=== PATIENT | male | born 1935 | race Asian ===

== ENCOUNTER 2017-03-15 16:15 | Emergency (ER) | payer SELFPAY ==
[~2017-03-15] VITALS: Ht 172.7 cm; Wt 73.0 kg
[~2017-03-15 16:15] MED LIST: AMLO-114 PO; ATOR-24 PO
[2017-03-15 16:17] VITALS: TEMP 36.5; Ht 172.7 cm; Wt 73.0 kg
[2017-03-15] MEDS ORDERED: ONDANSETRON 4MG OD TAB PO ONE (16:45)
--- NOTE | 2017-03-15 17:10 | DIAGNOSTIC IMAGING REPORT ---
HEAD WITHOUT CONTRAST (CT) CT DOSE: 1088.29 mGy.cm HISTORY: Trauma fall, head injury TECHNIQUE: Multiaxial CT images of the head were performed without the use of intravenous contrast. A dose lowering technique was utilized adhering to the principles of ALARA. Comparison: None. Findings: The paranasal sinuses and mastoid air cells are clear. The calvarium and skull base are intact. The ventricles and sulci are within normal limits. There is no mass, hematoma, midline shift, or acute infarct. Impression: No acute intracranial abnormality. The above report was generated using voice recognition software. It may contain grammatical, syntax or spelling errors. Electronically signed by: Lars Martinez M.D. 03/15/2017 5:09 PM Dictated Date/Time: 03/15/2017 5:05 PM
--- NOTE | 2017-03-15 17:22 | DIAGNOSTIC IMAGING REPORT ---
CT OF THE CERVICAL SPINE WITHOUT CONTRAST CLINICAL HISTORY: Neck pain following fall. COMPARISON STUDY: No previous studies for comparison. TECHNIQUE: Helical axial images of the cervical spine were obtained without IV contrast. Sagittal and coronal reconstructions were viewed. A dose lowering technique was utilized adhering to the principles of ALARA. FINDINGS: Alignment of the cervical spine is anatomic. Craniocervical junction is intact. There is no acute cervical spine fracture. No prevertebral edema is present. There is extensive anterior osteophytosis with mild to moderate multilevel disc space narrowing. There is moderate multilevel facet arthrosis. IMPRESSION: No acute cervical spine fracture or subluxation. Electronically signed by: Tre Meek M.D. 03/15/2017 5:21 PM Dictated Date/Time: 03/15/2017 5:18 PM
--- NOTE | 2017-03-15 18:26 | EMERGENCY ROOM VISIT NOTE ---
History First contact with patient: 16:25 Chief Complaint: HEAD INJURY (MINOR) Stated Complaint: NECK/ HEAD INJURY History of Present Illness The patient is a 81 year old male who presents to the Emergency Room accompanied by his son-in-law with complaints of a fall and head injury. The patient speaks [place]ese and translation is performed by his son-in-law at patient request. The patient states that he fell down 5-6 stairs this morning, striking the back of his head and neck on the ground. He has had persistent pain in the back of his head and neck since then. There was one episode of vomiting several hours ago. The patient does report some mild nausea. There was no loss of consciousness. There has been no confusion. He denies numbness , weakness, blurred vision or slurred speech. Patient does not take anticoagulants. Review of Systems A complete 10 point review of systems was reviewed with the patient with pertinent positives and negatives as per history of present illness. All else were negative. Family History Cancer Gallbladder disease Hypertension Social History Smoking Status: Current Every Day Smoker Marital Status: Housing Status: lives with family Occupation Status: retired Current/Historical Medications Scheduled Amlodipine (Norvasc), 10 MG PO DAILY Atorvastatin (Lipitor), 40 MG PO DAILY Physical Exam Vital Signs Date Time Temp Pulse Resp B/P (MAP) Pulse Ox O2 Delivery O2 Flow Rate FiO2 03/15/17 18:38 53 18 158/87 95 03/15/17 18:23 53 18 158/87 95 Room Air 03/15/17 16:17 36.5 58 18 178/90 94 Room Air Physical Exam VITALS: Vitals are noted on the nurse's note and reviewed by myself. Vital signs stable. GENERAL: This is an 81-year-old male, in no acute distress, nondiaphoretic, well -developed well-nourished. SKIN: The skin was without rashes, erythema, edema, or bruising. HEAD: Normocephalic atraumatic. EARS: External auditory canals clear, tympanic membranes pearly merrill without erythema or effusion bilaterally. No hemotympanum EYES: Pupils equal round and reactive to light and accommodation. Conjunctivae without injection, sclerae without icterus. Extraocular movements intact. NECK: Cervical collar in place. Supple without nuchal rigidity. No midline C- spine tenderness. There is tenderness bilaterally of the cervical paraspinous muscles. HEART: Regular rate and rhythm without murmurs gallops or rubs. LUNGS: Clear to auscultation bilaterally without wheezes, rales or rhonchi. MUSCULOSKELETAL: Full range of motion throughout. Strength 5/5 throughout. NEURO: Patient was alert and oriented to person place and time. Normal sensation to light and sharp touch. No focal neurological deficits. Medical Decision & Procedures ER Provider Diagnostic Interpretation: HEAD WITHOUT CONTRAST (CT) Impression: No acute intracranial abnormality. CT OF THE CERVICAL SPINE WITHOUT CONTRAST IMPRESSION: No acute cervical spine fracture or subluxation. Medications Administered Medications (Trade) Dose Ordered Sig/Alberto Route Start Time Stop Time Status Last Admin Dose Admin Ondansetron HCl (Zofran Odt) 4 mg ONE ONCE PO 03/15/17 16:45 03/15/17 16:46 DC 03/15/17 16:50 4 MG Acetaminophen (Tylenol Tab) 1,000 mg NOW STAT PO 03/15/17 18:27 03/15/17 18:28 DC 03/15/17 18:34 1,000 MG Medical Decision Differential diagnosis includes intracranial hemorrhage, skull fracture, closed head injury, among others. The patient is an 81-year-old male who presents today complaining of a head injury. He was medicated with Tylenol for pain and Zofran for nausea. CT of the head and cervical spine were within normal limits. There is no midline cervical spine tenderness. Patient was placed in a soft cervical collar for his comfort. Conservative measures were discussed with the patient and his son- in-law. He was instructed to follow-up with his primary care provider. They verbalized understanding of my assessment and treatment plan the patient was discharged home in good condition. The patient was independently evaluated by Dr. Gross, ED attending physician, who agreed with my assessment and treatment plan. Medication Reconcilliation Current Medication List: was personally reviewed by me Blood Pressure Screening Patient's blood pressure: Elevated blood pressure Blood pressure disposition: Elevated BP felt to be situational Impression Primary Impression: Closed head injury Departure Information Dispostion Home / Self-Care Condition GOOD Referrals No Doctor, Assigned (PCP) Patient Instructions My [facility] Additional Instructions You have been treated in the Emergency Department for a Closed Head Injury. CT Scan of your head/brain demonstrated no acute bleeding or other abnormalities. This does not completely rule out the risk for future damage to the brain. For pain control, you can use the following txny-gly-joymezt medicines (if >12 yo): - Regular strength (325mg/tab) Tylenol (acetaminophen) 2 tabs every 4-6 hours as needed. Do not exceed 12 tablets in a 24 hour period. Avoid taking more than 4 grams (4000 mg) of Tylenol per day. This includes any other sources of acetaminophen you may take on a regular basis. - Regular strength (200 mg/tab) Advil (ibuprofen) 1-2 tabs every 4-6 hours as needed. Do not exceed a dose of 3200 mg per day. Follow-up with a primary care provider within one week. Wear the cervical collar as needed for comfort. Return to the Emergency Department if your current symptoms worsen despite treatment course outlined above, or if you develop any of the following symptoms : intractable pain despite aforementioned treatment course, visual disturbances , loss of vision, unilateral weakness or facial drooping, slurring of speech, loss of coordination, or loss of consciousness. Problem Qualifiers Primary Impression: Closed head injury Encounter type: initial encounter Qualified Codes: S09.90XA - Unspecified injury of head, initial encounter
[2017-03-15] MEDS ORDERED: ACETAMINOPHEN 500 MG TAB PO STA (18:27)
[2017-03-15 18:38] VITALS: BP 158/87; PULSE 53; O2SAT 95
--- NOTE | 2017-03-15 23:06 | EMERGENCY ROOM VISIT NOTE ---
ED Visit Note First contact with patient: 16:25 This Patient was discussed with the physician Reconciliation Clerk, Tammy Ndiaye PA-C. The pertinent historical and physical exam findings were confirmed. I agree with the studies ordered and with the interpretations of these studies. I agree with the disposition and care plan.
== END 2017-03-15 18:38 | disposition home or self-care (01) ==
LOC: C.EDB 16:17 → C.EDD 18:38
DX: S09.90XA Unspecified injury of head, initial encounter (principal); W10.9XXA Fall (on) (from) unspecified stairs and steps, initial encounter; F17.210 Nicotine dependence, cigarettes, uncomplicated; Z80.9 Family history of malignant neoplasm, unspecified; Z82.49 Family history of ischemic heart disease and other diseases of the circulatory system; Z79.899 Other long term (current) drug therapy